=== PATIENT | male | born 1940 | race Caucasian/White ===

== ENCOUNTER → 2016-10-19 | Day surgery (SDC) | payer MEDICARE ==
[~2016-10-19] VITALS: Ht 174 cm; Wt 79.5 kg
[~2016-10-19] MED LIST: ASPI1TAB69 PO; CYCLOPENTOLATE HCL 1% OPHT SOLN 2 ML BTL ONE; ENAL20TA81 PO; FLURBIPROFEN 0.03% OPHT SOLN 2.5 ML BTL ONE; LIDOCAINE HCL 2% JELLY 5 ML SYRINGE ONE; LOVA40TA PO; METO25TA3 PO; MULTTAB67 PO; OMEGCAP PO; PHENYLEPHRINE HCL 10% OPTH SOLN 5 ML BTL ONE; PRAS10TA PO; PROPARACAINE HCL 0.5% OPHT SOLN 15 ML BTL ONE; SODIUM CHLORID 0.9% 500 ML INJ 500 ML ONE; TROPICAMIDE 1% OPHT SOLN 15 ML BTL ONE; VITA10002 PO
[2016-10-19 06:46] VITALS: BP 181/95; PULSE 67; RESP 18; TEMP 97.6; O2SAT 99
[2016-10-19] MEDS: LIDOCAINE HCL 1% 30 ML VIAL ONE ×2 (08:10→08:19)
[2016-10-19] MEDS: TOBRAMYCIN/DEXAMETHASONE OPTH OINT 3.5 GM TUBE ONE ×2 (08:16→08:30)
[2016-10-19 08:40] VITALS: TEMP 97.2
[2016-10-19 08:55] VITALS: BP 177/90; PULSE 65; RESP 14; O2SAT 97
--- NOTE | 2016-10-21 14:17 | MP ---
cc: BUBBA PABLO MD Corrected Copy: 10/23/16 DATE OF SURGERY: 10/19/2016 [facility] #[id number] PREOPERATIVE DIAGNOSIS Visually significant cataract right eye. POSTOPERATIVE DIAGNOSIS: Visually significant cataract right eye. OPERATION: Phacoemulsification with posterior chamber lens implantation, right eye. SURGEON: Bubba Pablo MD ANESTHESIA: Topical with MAC. COMPLICATIONS: None. PROCEDURE: After informed consent was obtained, the patient was brought into the operative suite and placed on appropriate monitors by the Anesthesia Service. The patient had been given dilating drops and topical lidocaine gel in the holding area. The patient's operative eye was then prepped and draped in the usual sterile fashion. A wire lid speculum was placed. Further 2% lidocaine was then dropped on the cornea prior to beginning the procedure. A paracentesis incision was made in the peripheral cornea with a 1 mm cameron keratome. The anterior chamber was filled with viscoelastic. The anterior chamber was then entered through a stepped, clear corneal incision using a sharp 3 mm cameron keratome. A circular tear capsulorrhexis was then made with a bent needle cystitome. Following hydrodissection of the lens nucleus with balance saline, phaco-emulsification of the nucleus was performed using a modified chopping technique. The remaining cortex was removed with irrigation/aspiration. The prior two procedures were both performed using the handpieces of the [employer] phaco unit. The capsular bag was then filled with viscoelastic. The intraocular lens was then injected into the capsular bag and positioned. The type of intraocular lens and its power can be found elsewhere in this chart. The remaining viscoelastic was then removed from the anterior chamber with the IA handpiece. The anterior chamber was reformed with balanced saline. The wound was then closed securely with stromal hydration. It was found to be watertight to an intraocular pressure of at least 30 mmHg by palpation. A small amount of balanced salt solution was then removed through the paracentesis site and the intraocular pressure at the end of the case was approximately 20 by palpation. All drapes were then removed. TobraDex ointment was then placed in the eye, which was closed beneath a semi-pressure patch dressing. The patient tolerated this procedure well and left the operating room awake and alert. The patient is to follow-up in my office in the morning. MD DILLON Ortiz/MARCIA /9:36 AM /8:24 AM
== END | disposition home or self-care (01) ==
LOC: PHSDC 06:05
PROVIDERS: ATTEND Optometrist Occupational Vision
DX: H25.011 Cortical age-related cataract, right eye (principal)
CPT/HCPCS: 00142; 66984; J7040; V2632